=== PATIENT | female | born 1965 | race African-American/Black ===

== ENCOUNTER 2017-04-16 13:19 | Emergency (ER) | payer BC, OTHER ==
[~2017-04-16] VITALS: Ht 172.7 cm; Wt 90.7 kg
[~2017-04-16 13:19] MED LIST: NAPROSYN500 MG PO
[2017-04-16] MEDS ORDERED: OSELB75 PO (15:27)
[2017-04-16] MEDS ORDERED: TUSSIONEX PENN115 ML PO (15:27)
[2017-04-16] MEDS ORDERED: TESSALON PERLE100 MG PO (15:27)
[2017-04-16] MEDS ORDERED: ZOFRAN4 MG PO (15:28)
== END 2017-04-16 16:00 | disposition home or self-care (01) ==
LOC: ER 13:19
DX: J11.1 Influenza due to unidentified influenza virus with other respiratory manifestations (principal)